=== PATIENT | female | born 1990 | race Hispanic/Latino ===

== ENCOUNTER 2020-11-17 19:36 | Emergency (ER) | payer SELFPAY ==
[2020-11-17] MEDS ORDERED: Lidocaine 1% (PF) 30 ML VIAL ONE (21:08)
[2020-11-17] MEDS ORDERED: Triple Antibiotic Oint 1 GM Packet ONE (21:32)
[2020-11-17] MEDS ORDERED: Boostrix 0.5 ML (Tdap) VIAL ONE (21:39)
== END 2020-11-17 22:02 | disposition home or self-care (01) ==
LOC: ERS 19:36
DX: S61.412A Laceration without foreign body of left hand, initial encounter (principal); W26.8XXA Contact with other sharp object(s), not elsewhere classified, initial encounter
CPT/HCPCS: 12001; 90471; 90715; J2001